=== PATIENT | male | born 1970 | race Caucasian/White ===

== ENCOUNTER 2021-04-24 13:16 | Observation (INO) ==
[2021-04-24 14:12] LABS: Basophils # 0.1 K/mcL (0.0-0.2); Basophils % 1.1 %; Eosinophils # 0.2 K/mcL (0.0-0.6); Eosinophils % 4.1 %; Hematocrit 42.9 % (37.5-50.1); Hemoglobin 15.1 g/dL (12.9-16.9); Immature Granulocytes % 0.2 % (0-4); Lymphocytes % 35.8 %; Mean Corpuscular HGB Conc 35.2 g/dL (31.6-35.5); Mean Corpuscular Hemoglobin 32.3 pg (28.0-33.3); Mean Corpuscular Volume 91.7 fL (83.0-100.0); Mean Platelet Volume 9.3 fL (9.4-12.4); Monocytes # 0.4 K/mcL (0.0-1.3); Monocytes % 6.3 %; Neutrophils # 2.9 K/mcL (1.6-8.9); Platelet Count 266 K/mcL (140-400); Red Blood Count 4.68 M/mcL (4.19-5.50); Red Cell Distribution Width 12.3 % (11.5-14.5); Segmented Neutrophils % 52.5 %; White Blood Count 5.6 K/mcL (4.3-11.1)
[2021-04-24 14:36] LABS: Prothrombin Time 11.8 Seconds (9.4-12.1)
[2021-04-24 14:38] LABS: Activated Partial Thrombo Time 28.5 Seconds (26.0-36.0)
[2021-04-24 14:52] LABS: BUN/Creatinine Ratio 18 (6-26); Blood Urea Nitrogen 16 mg/dL (6-20); Calcium 9.7 mg/dL (8.6-10.3); Carbon Dioxide 24 mEq/L (23-29); Chloride 105 mEq/L (98-107); Glucose 124 mg/dL (70-105); Osmolality,Calculated 289 (280-300); Potassium 3.5 mEq/L (3.5-5.1); Sodium 138 mEq/L (136-145); Troponin I < 0.03 ng/mL (< 0.04); eGFR For African Americans > 60 (> 60); eGFR For Non-African Americans > 60 (> 60)
[2021-04-24] MEDS ORDERED: Ketorolac 30 MG/ML VIAL IM ONE (16:19)
[2021-04-24] MEDS ORDERED: Ketorolac 30 MG/ML VIAL IVP ONE (16:44)
[2021-04-24] MEDS ORDERED: Isovue-370 500 ML BOTTLE IVP ONE (17:30)
[2021-04-24] MEDS ORDERED: Aspirin 325 MG TABLET PO ONE (18:22)
[2021-04-24] MEDS ORDERED: Naloxone 0.4 MG/ML INJ IVP PRN (19:37)
[2021-04-24] MEDS ORDERED: Ondansetron 4 MG/2 ML VIAL IVP PRN (19:37)
[2021-04-24] MEDS ORDERED: Acetaminophen 325 MG TABLET PO PRN (19:37)
[2021-04-25] MEDS ORDERED: Nitroglycerin 0.4 MG TAB.SUBL SL PRN (00:47)
[2021-04-25] MEDS ORDERED: Morphine Sulfate 2 MG/ML SYRINGE IVP PRN (00:49)
[2021-04-25] MEDS ORDERED: Perflutren Lipid Microsphere 1.3 ML in 0.9 % Sodium Chloride 8.7 ML IVP PRN (00:49)
[2021-04-25 05:43] LABS: Hematocrit 42.2 % (37.5-50.1); Hemoglobin 14.4 g/dL (12.9-16.9); Mean Corpuscular HGB Conc 34.1 g/dL (31.6-35.5); Mean Corpuscular Hemoglobin 31.9 pg (28.0-33.3); Mean Corpuscular Volume 93.4 fL (83.0-100.0); Mean Platelet Volume 9.5 fL (9.4-12.4); Platelet Count 243 K/mcL (140-400); Red Blood Count 4.52 M/mcL (4.19-5.50); Red Cell Distribution Width 12.6 % (11.5-14.5)
[2021-04-25 06:03] LABS: BUN/Creatinine Ratio 19 (6-26); Blood Urea Nitrogen 17 mg/dL (6-20); Calcium 9.2 mg/dL (8.6-10.3); Carbon Dioxide 26 mEq/L (23-29); Chloride 107 mEq/L (98-107); Cholesterol 219 mg/dL (< 200); Glucose 114 mg/dL (70-105); HDL Cholesterol 22 mg/dL (40-59); Osmolality,Calculated 292 (280-300); Phosphorous 3.7 mg/dL (2.7-4.5); Potassium 3.9 mEq/L (3.5-5.1); Sodium 140 mEq/L (136-145); Triglycerides 625 mg/dL (< 150); eGFR For African Americans > 60 (> 60); eGFR For Non-African Americans > 60 (> 60)
[2021-04-25] MEDS ORDERED: Regadenoson 0.4 MG/5 ML SYRINGE IVP ONE (08:50)
[2021-04-25] MEDS ORDERED: Aspirin 81 MG TAB.CHEW PO SCH (09:00)
[2021-04-25 14:13] VITALS: BP 124/83
[2021-04-26] MEDS ORDERED: Fenofibrate 54 MG TABLET PO SCH (09:00)
== END 2021-04-25 18:35 | disposition home or self-care (01) ==
LOC: EMEROOARM 13:16 → 3ANU 13:16 → SUATTDRO 20:38 → 3ANU 21:57
PROVIDERS: ADMIT Family Medicine; ATTEND Internal Medicine